=== PATIENT | female | born 1995 | race American Indian/Alaskan Native ===

== ENCOUNTER 2017-10-01 02:49 | Inpatient (IN) | payer MEDICAID ==
[2017-10-01] MEDS ORDERED: Nalbuphine 20 MG/ML 1 ML Syringe IVPUSH PRN (06:12)
[2017-10-01] MEDS ORDERED: Sodium Chloride 0.9% 10 ML Syringe FLUSH PRN (06:12)
[2017-10-01] MEDS ORDERED: Oxytocin/Lactated Ringers 10 UNIT/1,000 ML BAG IV SCH (06:15)
[2017-10-01] MEDS ORDERED: Lactated Ringers 1,000 ML IV SCH (06:15)
[2017-10-01] MEDS ORDERED: Diphtheria,Pertussis(Acell),Tetanus Vaccine 0.5 ML SDV IM ONE (06:42)
[2017-10-01] MEDS ORDERED: ePHEDrine 50 MG/ML SDV IVPUSH PRN (07:34)
[2017-10-01] MEDS ORDERED: fentaNYL 100 MCG/2 ML SDV EPIDUR PRN (07:34)
[2017-10-01] MEDS ORDERED: Ondansetron 4 MG/2 ML SDV IVPUSH PRN (07:34)
--- NOTE | 2017-10-01 07:36 | PCM.PREANE ---
Preanesthetic Assessment - Anesthesia/Transfusion/Family Hx Anesthesia History: Prior Anesthesia Reaction Family History of Anesthesia Reaction: No Transfusion History: No Prior Transfusion(s) Intubation History: Unknown - Physical Assessment NPO Status Date: 10/01/17 Pulse: 84 O2 Sat by Pulse Oximetry: 99 Respiratory Rate: 18 Blood Pressure: 104/72 Temperature: 36.6 C Vital Signs: Last Vital Signs Temp 36.6 C 10/01/17 03:39 Pulse 84 10/01/17 03:39 Resp 18 10/01/17 03:39 BP 104/72 10/01/17 03:39 Pulse Ox Height: 1.65 m Weight: 79.333 kg ASA Class: 2 Mental Status: Alert & Oriented x3 - Lab Values: Laboratory Last Values WBC 11.85 K/mm3 (3.98-10.04) H 10/01/17 04:40 RBC 3.48 M/mm3 (3.98-5.22) L 10/01/17 04:40 Hgb 8.5 gm/L (11.2-15.7) L 10/01/17 04:40 Hct 27.6 % (34.1-44.9) L 10/01/17 04:40 MCV 79.3 fl (79.4-94.8) L 10/01/17 04:40 MCH 24.4 pg (25.6-32.2) L 10/01/17 04:40 MCHC 30.8 g/dl (32.2-35.5) L 10/01/17 04:40 RDW Std Deviation 41.9 fL (36.4-46.3) 10/01/17 04:40 Plt Count 246 K/mm3 (182-369) 10/01/17 04:40 MPV 9.8 fl (9.4-12.3) 10/01/17 04:40 Neut % (Auto) 74.6 % (34.0-71.1) H 10/01/17 04:40 Lymph % (Auto) 17.3 % (19.3-51.7) L 10/01/17 04:40 [place] % (Auto) 6.5 % (4.7-12.5) 10/01/17 04:40 Eos % (Auto) 1.2 (0.7-5.8) 10/01/17 04:40 Baso % (Auto) 0.1 % (0.1-1.2) 10/01/17 04:40 Neut # (Auto) 8.85 K/mm3 (1.56-6.13) H 10/01/17 04:40 Lymph # (Auto) 2.05 K/mm3 (1.18-3.74) 10/01/17 04:40 [place] # (Auto) 0.77 K/mm3 (0.24-0.36) H 10/01/17 04:40 Eos # (Auto) 0.14 K/mm3 (0.04-0.36) 10/01/17 04:40 Baso # (Auto) 0.01 K/mm3 (0.01-0.08) 10/01/17 04:40 Urine Color Yellow (Yellow) 10/01/17 03:35 Urine Appearance Slt cloudy (Clear) H 10/01/17 03:35 Urine pH 7.0 (5.0-8.0) 10/01/17 03:35 Ur Specific [place] 1.020 (1.005-1.030) 10/01/17 03:35 Urine Protein Negative (Negative) 10/01/17 03:35 Urine Glucose (UA) Negative (Negative) 10/01/17 03:35 Urine Ketones Negative (Negative) 10/01/17 03:35 Urine Occult Blood Trace-lysed (Negative) H 10/01/17 03:35 Urine Nitrite Negative (Negative) 10/01/17 03:35 Urine Bilirubin Negative (Negative) 10/01/17 03:35 Urine Urobilinogen 1.0 (0.2-1.0) 10/01/17 03:35 Ur Leukocyte Esterase 1+ (Negative) H 10/01/17 03:35 Urine RBC 0-5 /hpf (0-5) 10/01/17 03:35 Urine WBC 0-5 /hpf (0-5) 10/01/17 03:35 Ur Epithelial Cells 0-5 /hpf (0-5) 10/01/17 03:35 Amorphous Sediment Many /hpf (NOT SEEN) H 10/01/17 03:35 Urine Bacteria Few /hpf (FEW) 10/01/17 03:35 Urine Mucus Not seen /hpf (FEW) 10/01/17 03:35 Urine Opiates Screen Negative (NEGATIVE) 10/01/17 03:35 Ur Buprenorphine Scrn Negative (NEGATIVE) 10/01/17 03:35 Ur Oxycodone Screen Negative (NEGATIVE) 10/01/17 03:35 Urine Methadone Screen Negative (NEGATIVE) 10/01/17 03:35 Ur Propoxyphene Screen Negative (NEGATIVE) 10/01/17 03:35 Ur Barbiturates Screen Negative (NEGATIVE) 10/01/17 03:35 Ur Tricyclics Screen Negative (NEGATIVE) 10/01/17 03:35 Ur Phencyclidine Scrn Negative (NEGATIVE) 10/01/17 03:35 Ur Amphetamine Screen Negative (NEGATIVE) 10/01/17 03:35 U Methamphetamines Scrn Negative (NEGATIVE) 10/01/17 03:35 U Benzodiazepines Scrn Negative (NEGATIVE) 10/01/17 03:35 U Cocaine Metab Screen Negative (NEGATIVE) 10/01/17 03:35 U Marijuana (THC) Screen Negative (NEGATIVE) 10/01/17 03:35 HIV-1 Ab Rapid Screen Negative (NEGATIVE) 10/01/17 04:40 Blood Type A POSITIVE 10/01/17 04:40 Gel Antibody Screen Negative 10/01/17 04:40 Above labs reviewed and noted and within acceptable ranges to proceed with epidural. 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: - SUBSTANCE USE Smoking Status *Q: Never Smoker Tobacco Use Within Last Twelve Months: No Second Hand Smoke Exposure: No Recreational Drug Use History: No - CURRENT (IN HOUSE) MEDS Current Meds: Current Medications Lactated Ringer's (Ringers, Lactated) 1,000 mls @ 100 mls/hr IV ASDIRECTED [facility] Last Admin: 10/01/17 06:47 Dose: 100 mls/hr Oxytocin/Lactated Ringer's (Pitocin In Lr 10 Units/1,000 Ml) 10 unit in 1,000 mls @ 500 mls/hr IV .CONTINUOUS DARIA Nalbuphine HCl (Nubain) 10 mg IVPUSH Q2H PRN PRN Reason: pain Sodium Chloride (Saline Flush) 10 ml FLUSH ASDIRECTED PRN PRN Reason: Keep Vein Open Discontinued Medications Diphtheria/Tetanus/Acell Pertussis (Adacel) 0.5 ml IM .ONCE ONE Stop: 10/01/17 06:43
[2017-10-01] MEDS ORDERED: Bupivacaine/fentaNYL/NS 100 ML Bag EPIDUR SCH (07:45)
[2017-10-01] MEDS ORDERED: Phenylephrine 1 MG in Sodium Chloride 0.9% 10 ML IV SCH (07:45)
--- NOTE | 2017-10-01 07:50 | PCM.LDHP ---
L&D History of Present Illness - General Date of Service: 10/01/17 Admit Problem/Dx: Patient Status Order with Admit Dx/Problem 10/01/17 03:39 Patient Status [ADT] Routine 10/01/17 06:45 Patient Status [ADT] Routine Admission Diagnosis/Problem Admission Diagnosis/Problem Source of Information: Patient History Limitations: Reports: No Limitations - History of Present Illness Introduction:: 22-year-old no care presented to labor and delivery complaining of contractions. new OB labs obtained. According to patient GBS negative with last . GBS collected not available at present time. Patient was having irregular contractions but then labor became stronger and patient went from 1 cm to 3 end now 7 cm within an hour and a half time. Amniotomy performed at approximately 07 40 meconium-stained amnionic fluid. Estimated gestational age 38 weeks pelvic usg obtained today. AISHWARYA 10/01/2017 by LMP. 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: Social & Family History - Family History Family Medical History: Noncontributory - Tobacco Use Smoking Status *Q: Never Smoker Second Hand Smoke Exposure: No - Caffeine Use Caffeine Use: Reports: Soda - Recreational Drug Use Recreational Drug Use: No H&P Review of Systems - Review of Systems: Review Of Systems: See Below General: Reports: No Symptoms HEENT: Reports: No Symptoms Pulmonary: Reports: No Symptoms Cardiovascular: Reports: No Symptoms Gastrointestinal: Reports: No Symptoms Genitourinary: Reports: No Symptoms Musculoskeletal: Reports: No Symptoms Skin: Reports: No Symptoms Psychiatric: Reports: No Symptoms Neurological: Reports: No Symptoms Hematologic/Lymphatic: Reports: No Symptoms Immunologic: Reports: No Symptoms L&D Exam - Exam Exam: See Below - Vital Signs Vital Signs: Last Vital Signs Temp 97.9 F 10/01/17 07:36 Pulse 84 10/01/17 07:36 Resp 18 10/01/17 07:36 BP 104/72 10/01/17 07:36 Pulse Ox 99 10/01/17 07:36 Weight: 174 lb 14.4 oz - OB Specific Fundal Height In cm: 38 Contraction Duration (sec): 60 Contraction Frequency (min): 3 Contraction Intensity: Moderate Movement: Active Heart Tones: Present Heart Tones per Min: 135 Heart Rate (FHR) Variability: Moderate (6-25 bmp) Presentation: Vertex - Ha Score Ha Score Cervix Position: Anterior Ha Score Consistency: Soft Ha Score Effacement: >80% Ha Score Dilation: > 5 cm Ha Score Infant's Station: -1 ,0 Ha Score Total: 12 - Exam General: Alert, Oriented HEENT: Conjunctiva Clear, Mucosa Moist & [place], PERRLA Neck: Supple, Trachea Midline Lungs: Clear to Auscultation, Normal Respiratory Effort Cardiovascular: Regular Rate, Regular Rhythm GI/Abdominal Exam: Normal Bowel Sounds, Soft, Non-Tender, No Organomegaly, No Distention, No Abnormal Bruit, No Mass, Pelvis Stable Genitourinary: Normal external exam, Normal bimanual exam, Normal speculum exam Extremities: Normal Inspection, Normal Range of Motion, Non-Tender, No Pedal Edema, Normal Capillary Refill Skin: Warm, Dry, Intact Psychiatric: Alert, Normal Affect, Normal Mood - Patient Data Lab Results Last 24 hrs: Laboratory Results - last 24 hr 10/01/17 10/01/17 10/01/17 Range/Units 03:35 03:35 04:40 WBC 11.85 H (3.98-10.04) K/mm3 RBC 3.48 L (3.98-5.22) M/mm3 Hgb 8.5 L (11.2-15.7) gm/L Hct 27.6 L (34.1-44.9) % MCV 79.3 L (79.4-94.8) fl MCH 24.4 L (25.6-32.2) pg MCHC 30.8 L (32.2-35.5) g/dl RDW Std Deviation 41.9 (36.4-46.3) fL Plt Count 246 (182-369) K/mm3 MPV 9.8 (9.4-12.3) fl Neut % (Auto) 74.6 H (34.0-71.1) % Lymph % (Auto) 17.3 L (19.3-51.7) % [place] % (Auto) 6.5 (4.7-12.5) % Eos % (Auto) 1.2 (0.7-5.8) Baso % (Auto) 0.1 (0.1-1.2) % Neut # (Auto) 8.85 H (1.56-6.13) K/mm3 Lymph # (Auto) 2.05 (1.18-3.74) K/mm3 [place] # (Auto) 0.77 H (0.24-0.36) K/mm3 Eos # (Auto) 0.14 (0.04-0.36) K/mm3 Baso # (Auto) 0.01 (0.01-0.08) K/mm3 Urine Color Yellow (Yellow) Urine Appearance Slt cloudy H (Clear) Urine pH 7.0 (5.0-8.0) Ur Specific [place] 1.020 (1.005-1.030) Urine Protein Negative (Negative) Urine Glucose (UA) Negative (Negative) Urine Ketones Negative (Negative) Urine Occult Blood Trace-lysed H (Negative) Urine Nitrite Negative (Negative) Urine Bilirubin Negative (Negative) Urine Urobilinogen 1.0 (0.2-1.0) Ur Leukocyte Esterase 1+ H (Negative) Urine RBC 0-5 (0-5) /hpf Urine WBC 0-5 (0-5) /hpf Ur Epithelial Cells 0-5 (0-5) /hpf Amorphous Sediment Many H (NOT SEEN) /hpf Urine Bacteria Few (FEW) /hpf Urine Mucus Not seen (FEW) /hpf Urine Opiates Screen Negative (NEGATIVE) Ur Buprenorphine Scrn Negative (NEGATIVE) Ur Oxycodone Screen Negative (NEGATIVE) Urine Methadone Screen Negative (NEGATIVE) Ur Propoxyphene Screen Negative (NEGATIVE) Ur Barbiturates Screen Negative (NEGATIVE) Ur Tricyclics Screen Negative (NEGATIVE) Ur Phencyclidine Scrn Negative (NEGATIVE) Ur Amphetamine Screen Negative (NEGATIVE) U Methamphetamines Scrn Negative (NEGATIVE) U Benzodiazepines Scrn Negative (NEGATIVE) U Cocaine Metab Screen Negative (NEGATIVE) U Marijuana (THC) Screen Negative (NEGATIVE) HIV-1 Ab Rapid Screen (NEGATIVE) Blood Type Gel Antibody Screen 10/01/17 10/01/17 Range/Units 04:40 04:40 WBC (3.98-10.04) K/mm3 RBC (3.98-5.22) M/mm3 Hgb (11.2-15.7) gm/L Hct (34.1-44.9) % MCV (79.4-94.8) fl MCH (25.6-32.2) pg MCHC (32.2-35.5) g/dl RDW Std Deviation (36.4-46.3) fL Plt Count (182-369) K/mm3 MPV (9.4-12.3) fl Neut % (Auto) (34.0-71.1) % Lymph % (Auto) (19.3-51.7) % [place] % (Auto) (4.7-12.5) % Eos % (Auto) (0.7-5.8) Baso % (Auto) (0.1-1.2) % Neut # (Auto) (1.56-6.13) K/mm3 Lymph # (Auto) (1.18-3.74) K/mm3 [place] # (Auto) (0.24-0.36) K/mm3 Eos # (Auto) (0.04-0.36) K/mm3 Baso # (Auto) (0.01-0.08) K/mm3 Urine Color (Yellow) Urine Appearance (Clear) Urine pH (5.0-8.0) Ur Specific [place] (1.005-1.030) Urine Protein (Negative) Urine Glucose (UA) (Negative) Urine Ketones (Negative) Urine Occult Blood (Negative) Urine Nitrite (Negative) Urine Bilirubin (Negative) Urine Urobilinogen (0.2-1.0) Ur Leukocyte Esterase (Negative) Urine RBC (0-5) /hpf Urine WBC (0-5) /hpf Ur Epithelial Cells (0-5) /hpf Amorphous Sediment (NOT SEEN) /hpf Urine Bacteria (FEW) /hpf Urine Mucus (FEW) /hpf Urine Opiates Screen (NEGATIVE) Ur Buprenorphine Scrn (NEGATIVE) Ur Oxycodone Screen (NEGATIVE) Urine Methadone Screen (NEGATIVE) Ur Propoxyphene Screen (NEGATIVE) Ur Barbiturates Screen (NEGATIVE) Ur Tricyclics Screen (NEGATIVE) Ur Phencyclidine Scrn (NEGATIVE) Ur Amphetamine Screen (NEGATIVE) U Methamphetamines Scrn (NEGATIVE) U Benzodiazepines Scrn (NEGATIVE) U Cocaine Metab Screen (NEGATIVE) U Marijuana (THC) Screen (NEGATIVE) HIV-1 Ab Rapid Screen Negative (NEGATIVE) Blood Type A POSITIVE Gel Antibody Screen Negative Result Diagrams: 10/01/17 04:40 - Problem List (1) No care in current in third trimester SNOMED Code(s): 130343640, 289437386 ICD Code: O09.33 - SUPRVSN OF PREG W INSUFFICIENT ANTENAT CARE, THIRD TRIMESTER Status: Acute Current Visit: Yes (2) Meconium in amniotic fluid affecting management of mother SNOMED Code(s): 09054391 ICD Code: O36.8990 - MATERNAL CARE FOR OTH PROBLEMS, UNSP TRIMESTER, UNSP Status: Acute Current Visit: Yes Qualifiers: Fetus number: single or unspecified fetus Trimester: third trimester Qualified Code(s): O36.8930 - Maternal care for other specified problems, third trimester, not applicable or unspecified (3) 40 weeks gestation of SNOMED Code(s): 35670616 ICD Code: Z3A.40 - 40 WEEKS GESTATION OF Status: Acute Current Visit: Yes Problem List Initiated/Reviewed/Updated: No Orders Last 24hrs: Active Orders 24 hr Category Date Time Status Patient Status [ADT] Routine ADT 10/01/17 03:39 Active Patient Status [ADT] Routine ADT 10/01/17 06:45 Active Activity as Tolerated [RC] PFP Care 10/01/17 06:16 Active Communication Order [RC] ASDIRECTED Care 10/01/17 06:16 Active Notify Provider [RC] ASDIRECTED Care 10/01/17 07:34 Active Notify Provider [RC] PFP Care 10/01/17 06:16 Active Notify Provider [RC] PRN Care 10/01/17 06:16 Active Oxygen Therapy [RC] ASDIRECTED Care 10/01/17 07:33 Active Peripheral IV Care [RC] . DIRECTED Care 10/01/17 06:16 Active Pulse Oximetry [RC] ASDIRECTED Care 10/01/17 07:34 Active Vaccines to be Administered [RC] PER UNIT ROUTINE Care 10/01/17 06:42 Active Vital Signs [RC] PER UNIT ROUTINE Care 10/01/17 03:39 Active Regular Diet [DIET] Diet 10/01/17 Breakfast Active OB Ltd 1 or More Fetus [US] Urgent Exams 10/01/17 04:20 Taken DRUG SCREEN, URINE [URCHEM] Stat Lab 10/01/17 03:35 Ordered GROUP B STREP BY PCR [MOLEC] Stat Lab 10/01/17 04:30 Received HEPATITIS B SURFACE AG [CHEM] Stat Lab 10/01/17 04:40 Received PATIENT RETYPE [BBK] Urgent Lab 10/01/17 04:40 Results RAPID PLASMA REAGIN,RPR [CHEM] Stat Lab 10/01/17 04:40 Received RUBELLA ANTIBODY IGG [CHEM] Stat Lab 10/01/17 04:40 Received TYPE AND SCREEN [BBK] Urgent Lab 10/01/17 04:40 Results UA W/MICROSCOPIC [URIN] Stat Lab 10/01/17 03:35 Ordered Bupivacaine/fentaNYL/NS [fentaNYL/Bupivacaine/NS 2 MCG- Med 10/01/17 07:45 Active 0.125% 100 ML] 100 ml EPIDUR ASDIRECTED Lactated Ringers [Ringers, Lactated] 1,000 ml Med 10/01/17 06:15 Active IV ASDIRECTED Nalbuphine [Nubain] Med 10/01/17 06:12 Active 10 mg IVPUSH Q2H PRN Ondansetron [Zofran] Med 10/01/17 07:34 Active 4 mg IVPUSH ONETIME PRN Oxytocin/Lactated Ringers [Pitocin in LR 10 Units/1,000 Med 10/01/17 06:15 Active ML] 10 unit in 1,000 ml IV .CONTINUOUS Phenylephrine [Rogelio-Synephrine] 1 mg Med 10/01/17 07:45 Active Sodium Chloride 0.9% [Normal Saline] 10 ml IV TITRATE Sodium Chloride 0.9% [Saline Flush] Med 10/01/17 06:12 Active 10 ml FLUSH ASDIRECTED PRN ePHEDrine [ePHEDrine Sulfate] Med 10/01/17 07:34 Active 5 mg IVPUSH ASDIRECTED PRN fentaNYL [Sublimaze] Med 10/01/17 07:34 Active 100 mcg EPIDUR Q3H PRN Electronic Heart Tones Ext w TOCO [WOMSER] Oth 10/01/17 06:16 Ordered Routine Electronic Heart Tones Internal [WOMSER] Per Unit Oth 10/01/17 06:16 Ordered Routine OB Panel [OM.PC] Stat Oth 10/01/17 04:20 Ordered Peripheral IV Insertion Adult [OM.PC] Routine Oth 10/01/17 06:16 Ordered Resuscitation Status Routine Resus Stat 10/01/17 03:38 Ordered Medication Orders Ephedrine Sulfate (Ephedrine Sulfate) 5 mg IVPUSH ASDIRECTED PRN PRN Reason: Hypotension Fentanyl (Sublimaze) 100 mcg EPIDUR Q3H PRN PRN Reason: Pain Fentanyl/Bupivacaine HCl (Fentanyl/Bupivacaine/Ns 2 Mcg-0.125% 100 Ml) 100 ml EPIDUR ASDIRECTED DARIA Lactated Ringer's (Ringers, Lactated) 1,000 mls @ 100 mls/hr IV ASDIRECTED DARIA Last Admin: 10/01/17 06:47 Dose: 100 mls/hr Oxytocin/Lactated Ringer's (Pitocin In Lr 10 Units/1,000 Ml) 10 unit in 1,000 mls @ 500 mls/hr IV .CONTINUOUS DARIA Phenylephrine HCl 1 mg/ Sodium (Chloride) 10.1 mls @ 1 mls/sec IV TITRATE DARIA; Protocol Nalbuphine HCl (Nubain) 10 mg IVPUSH Q2H PRN PRN Reason: pain Ondansetron HCl (Zofran) 4 mg IVPUSH ONETIME PRN PRN Reason: Nausea/Vomiting Sodium Chloride (Saline Flush) 10 ml FLUSH ASDIRECTED PRN PRN Reason: Keep Vein Open
[2017-10-01] MEDS ORDERED: Misoprostol 200 MCG Tab ONE (08:06)
--- NOTE | 2017-10-01 08:15 | PCM.DEL ---
L & D Note - General Info Date of Service: 10/01/17 Mother's Due Date: 10/01/17 - Delivery Note Labor: Spontaneous, Augmented by ARM Delivery Outcome: Livebirth (Female liveborn 0800 hrs. on Sunday10/01/17 BUTCH weight pending Apgars 8/9 meconium-stained amnionic fluid Dr. Santa food packer present at delivery) Delivery Method: Spontaneous Vaginal Delivery-Single Delivery Mode: Spontaneous Presentation: Right Occiput Anterior (BUTCH) Nuchal Cord: None Anesthesia Type: None Episiotomy Type: None Laceration: None Placenta: Intact, Spontaneous (0803 hours on Sunday10/01/17 central cord insertion examined and no missing placental cotyledons) Cord: 3 Vessels Estimated Blood Loss: 500 (Cytotec 200 g 2) Resuscitation Needed: No : Suctioned, Bulb Syringe, Stimulated, Warmed, [place] Used, Warmer Used Provider: James Obando Score 1 min: 8 Score 5 min: 9 - General Info Date of Service: 10/01/17 Admission Dx/Problem (Free Text): Patient Status Order with Admit Dx/Problem 10/01/17 03:39 Patient Status [ADT] Routine 10/01/17 06:45 Patient Status [ADT] Routine Admission Diagnosis/Problem Admission Diagnosis/Problem Functional Status: Reports: Pain Controlled - Review of Systems General: Reports: No Symptoms HEENT: Reports: No Symptoms Pulmonary: Reports: No Symptoms Cardiovascular: Reports: No Symptoms Gastrointestinal: Reports: No Symptoms Genitourinary: Reports: No Symptoms Musculoskeletal: Reports: No Symptoms Skin: Reports: No Symptoms Neurological: Reports: No Symptoms Psychiatric: Reports: No Symptoms - Patient Data Vitals - Most Recent: Last Vital Signs Temp 97.9 F 10/01/17 07:36 Pulse 84 10/01/17 07:36 Resp 18 10/01/17 07:36 BP 104/72 10/01/17 07:36 Pulse Ox 99 10/01/17 07:36 Weight - Most Recent: 174 lb 14.4 oz Lab Results Last 24 Hours: Laboratory Results - last 24 hr 10/01/17 10/01/17 10/01/17 Range/Units 03:35 03:35 04:40 WBC 11.85 H (3.98-10.04) K/mm3 RBC 3.48 L (3.98-5.22) M/mm3 Hgb 8.5 L (11.2-15.7) gm/L Hct 27.6 L (34.1-44.9) % MCV 79.3 L (79.4-94.8) fl MCH 24.4 L (25.6-32.2) pg MCHC 30.8 L (32.2-35.5) g/dl RDW Std Deviation 41.9 (36.4-46.3) fL Plt Count 246 (182-369) K/mm3 MPV 9.8 (9.4-12.3) fl Neut % (Auto) 74.6 H (34.0-71.1) % Lymph % (Auto) 17.3 L (19.3-51.7) % [place] % (Auto) 6.5 (4.7-12.5) % Eos % (Auto) 1.2 (0.7-5.8) Baso % (Auto) 0.1 (0.1-1.2) % Neut # (Auto) 8.85 H (1.56-6.13) K/mm3 Lymph # (Auto) 2.05 (1.18-3.74) K/mm3 M[place]at # (Auto) 0.77 H (0.24-0.36) K/mm3 Eos # (Auto) 0.14 (0.04-0.36) K/mm3 Baso # (Auto) 0.01 (0.01-0.08) K/mm3 Urine Color Yellow (Yellow) Urine Appearance Slt cloudy H (Clear) Urine pH 7.0 (5.0-8.0) Ur Specific [place] 1.020 (1.005-1.030) Urine Protein Negative (Negative) Urine Glucose (UA) Negative (Negative) Urine Ketones Negative (Negative) Urine Occult Blood Trace-lysed H (Negative) Urine Nitrite Negative (Negative) Urine Bilirubin Negative (Negative) Urine Urobilinogen 1.0 (0.2-1.0) Ur Leukocyte Esterase 1+ H (Negative) Urine RBC 0-5 (0-5) /hpf Urine WBC 0-5 (0-5) /hpf Ur Epithelial Cells 0-5 (0-5) /hpf Amorphous Sediment Many H (NOT SEEN) /hpf Urine Bacteria Few (FEW) /hpf Urine Mucus Not seen (FEW) /hpf Urine Opiates Screen Negative (NEGATIVE) Ur Buprenorphine Scrn Negative (NEGATIVE) Ur Oxycodone Screen Negative (NEGATIVE) Urine Methadone Screen Negative (NEGATIVE) Ur Propoxyphene Screen Negative (NEGATIVE) Ur Barbiturates Screen Negative (NEGATIVE) Ur Tricyclics Screen Negative (NEGATIVE) Ur Phencyclidine Scrn Negative (NEGATIVE) Ur Amphetamine Screen Negative (NEGATIVE) U Methamphetamines Scrn Negative (NEGATIVE) U Benzodiazepines Scrn Negative (NEGATIVE) U Cocaine Metab Screen Negative (NEGATIVE) U Marijuana (THC) Screen Negative (NEGATIVE) HIV-1 Ab Rapid Screen (NEGATIVE) Blood Type Gel Antibody Screen 10/01/17 10/01/17 Range/Units 04:40 04:40 WBC (3.98-10.04) K/mm3 RBC (3.98-5.22) M/mm3 Hgb (11.2-15.7) gm/L Hct (34.1-44.9) % MCV (79.4-94.8) fl MCH (25.6-32.2) pg MCHC (32.2-35.5) g/dl RDW Std Deviation (36.4-46.3) fL Plt Count (182-369) K/mm3 MPV (9.4-12.3) fl Neut % (Auto) (34.0-71.1) % Lymph % (Auto) (19.3-51.7) % [place] % (Auto) (4.7-12.5) % Eos % (Auto) (0.7-5.8) Baso % (Auto) (0.1-1.2) % Neut # (Auto) (1.56-6.13) K/mm3 Lymph # (Auto) (1.18-3.74) K/mm3 [place] # (Auto) (0.24-0.36) K/mm3 Eos # (Auto) (0.04-0.36) K/mm3 Baso # (Auto) (0.01-0.08) K/mm3 Urine Color (Yellow) Urine Appearance (Clear) Urine pH (5.0-8.0) Ur Specific [place] (1.005-1.030) Urine Protein (Negative) Urine Glucose (UA) (Negative) Urine Ketones (Negative) Urine Occult Blood (Negative) Urine Nitrite (Negative) Urine Bilirubin (Negative) Urine Urobilinogen (0.2-1.0) Ur Leukocyte Esterase (Negative) Urine RBC (0-5) /hpf Urine WBC (0-5) /hpf Ur Epithelial Cells (0-5) /hpf Amorphous Sediment (NOT SEEN) /hpf Urine Bacteria (FEW) /hpf Urine Mucus (FEW) /hpf Urine Opiates Screen (NEGATIVE) Ur Buprenorphine Scrn (NEGATIVE) Ur Oxycodone Screen (NEGATIVE) Urine Methadone Screen (NEGATIVE) Ur Propoxyphene Screen (NEGATIVE) Ur Barbiturates Screen (NEGATIVE) Ur Tricyclics Screen (NEGATIVE) Ur Phencyclidine Scrn (NEGATIVE) Ur Amphetamine Screen (NEGATIVE) U Methamphetamines Scrn (NEGATIVE) U Benzodiazepines Scrn (NEGATIVE) U Cocaine Metab Screen (NEGATIVE) U Marijuana (THC) Screen (NEGATIVE) HIV-1 Ab Rapid Screen Negative (NEGATIVE) Blood Type A POSITIVE Gel Antibody Screen Negative Med Orders - Current: Current Medications Ephedrine Sulfate (Ephedrine Sulfate) 5 mg IVPUSH ASDIRECTED PRN PRN Reason: Hypotension Fentanyl (Sublimaze) 100 mcg EPIDUR Q3H PRN PRN Reason: Pain Fentanyl/Bupivacaine HCl (Fentanyl/Bupivacaine/Ns 2 Mcg-0.125% 100 Ml) 100 ml EPIDUR ASDIRECTED DARIA Lactated Ringer's (Ringers, Lactated) 1,000 mls @ 100 mls/hr IV ASDIRECTED DARIA Last Admin: 10/01/17 06:47 Dose: 100 mls/hr Oxytocin/Lactated Ringer's (Pitocin In Lr 10 Units/1,000 Ml) 10 unit in 1,000 mls @ 500 mls/hr IV .CONTINUOUS DARIA Phenylephrine HCl 1 mg/ Sodium (Chloride) 10.1 mls @ 1 mls/sec IV TITRATE DARIA; Protocol Nalbuphine HCl (Nubain) 10 mg IVPUSH Q2H PRN PRN Reason: pain Ondansetron HCl (Zofran) 4 mg IVPUSH ONETIME PRN PRN Reason: Nausea/Vomiting Sodium Chloride (Saline Flush) 10 ml FLUSH ASDIRECTED PRN PRN Reason: Keep Vein Open Discontinued Medications Diphtheria/Tetanus/Acell Pertussis (Adacel) 0.5 ml IM .ONCE ONE Stop: 10/01/17 06:43 Misoprostol (Cytotec) Confirm Administered Dose 400 mcg .ROUTE .STK-MED ONE Stop: 10/01/17 08:07 - Problem List & Annotations (1) No care in current in third trimester SNOMED Code(s): 157916442, 144919850 Code(s): O09.33 - SUPRVSN OF PREG W INSUFFICIENT ANTENAT CARE, THIRD TRIMESTER Status: Acute Current Visit: Yes (2) Meconium in amniotic fluid affecting management of mother SNOMED Code(s): 89467437 Code(s): O36.8990 - MATERNAL CARE FOR OTH PROBLEMS, UNSP TRIMESTER, UNSP Status: Acute Current Visit: Yes Qualifiers: Fetus number: single or unspecified fetus Trimester: third trimester Qualified Code(s): O36.8930 - Maternal care for other specified problems, third trimester, not applicable or unspecified (3) 40 weeks gestation of SNOMED Code(s): 27194533 Code(s): Z3A.40 - 40 WEEKS GESTATION OF Status: Acute Current Visit: Yes - Problem List Review Problem List Initiated/Reviewed/Updated: No - My Orders Last 24 Hours: My Active Orders 10/01/17 03:35 DRUG SCREEN, URINE [URCHEM] Stat UA W/MICROSCOPIC [URIN] Stat 10/01/17 03:38 Resuscitation Status Routine 10/01/17 03:39 Patient Status [ADT] Routine Vital Signs [RC] PER UNIT ROUTINE 10/01/17 04:20 OB Ltd 1 or More Fetus [US] Urgent OB Panel [OM.PC] Stat 10/01/17 04:30 GROUP B STREP BY PCR [MOLEC] Stat 10/01/17 04:40 HEPATITIS B SURFACE AG [CHEM] Stat PATIENT RETYPE [BBK] Urgent RAPID PLASMA REAGIN,RPR [CHEM] Stat RUBELLA ANTIBODY IGG [CHEM] Stat TYPE AND SCREEN [BBK] Urgent 10/01/17 06:12 Nalbuphine [Nubain] 10 mg IVPUSH Q2H PRN Sodium Chloride 0.9% [Saline Flush] 10 ml FLUSH ASDIRECTED PRN 10/01/17 06:15 Lactated Ringers [Ringers, Lactated] 1,000 ml IV ASDIRECTED Oxytocin/Lactated Ringers [Pitocin in LR 10 Units/1,000 ML] 10 unit in 1,000 ml IV .CONTINUOUS 10/01/17 06:16 Activity as Tolerated [RC] PFP Communication Order [RC] ASDIRECTED Notify Provider [RC] PFP Notify Provider [RC] PRN Peripheral IV Care [RC] . DIRECTED Electronic Heart Tones Ext w TOCO [WOMSER] Routine Electronic Heart Tones Internal [WOMSER] Per Unit Routine Peripheral IV Insertion Adult [OM.PC] Routine 10/01/17 06:42 Vaccines to be Administered [RC] PER UNIT ROUTINE 10/01/17 06:45 Patient Status [ADT] Routine 10/01/17 Breakfast Regular Diet [DIET]
[2017-10-01] MEDS ORDERED: Docusate Sodium 100 MG Cap PO PRN (09:45)
[2017-10-01] MEDS ORDERED: Lanolin 100% Cream 7 GM Tube TOP PRN (09:45)
[2017-10-01] MEDS ORDERED: Benzocaine/Menthol 20%-0.5% Spray 56 GM Canister TOP PRN (09:45)
[2017-10-01] MEDS ORDERED: Acetaminophen 325 MG Tab PO PRN (09:45)
[2017-10-01] MEDS ORDERED: Witch Hazel Medicated Pads 100/Jar TOP PRN (09:45)
[2017-10-01] MEDS ORDERED: Misoprostol 200 MCG Tab PO ONE (09:45)
[2017-10-01] MEDS: Ibuprofen 600 MG Tab PO PRN (16:22)
--- NOTE | 2017-10-02 07:51 | PCM.SN ---
- Free Text/Narrative Note: 10/02/17 0750 hrs. Chest clear no abnormal heart sounds uterus involuting normally no leg cramping no heavy vaginal bleeding maybe home tomorrow.
[2017-10-02] MEDS: Ibuprofen 600 MG Tab PO PRN ×2 (14:34→22:34)
--- NOTE | 2017-10-03 08:44 | PCM.DCSUM1 ---
Discharge Summary - Hospital Course Free Text/Narrative:: [facility], [place], operated by [facility] LIVE L/D Delivery Note Patient Name: YISEL MARX Date of : 89 Patient Status: Inpatient Attending Provider: James Obando Date: 10/01/17 08:12 Initialization Date: 10/01/17 08:12 L & D Note - General Info Date of Service: 10/01/17 Mother's Due Date: 10/01/17 - Delivery Note Labor: Spontaneous, Augmented by ARM Delivery Outcome: Livebirth (Female liveborn 0800 hrs. on Sunday10/01/17 BUTCH weight pending Apgars 09/13 meconium-stained amnionic fluid Dr. Santa cloth examiner present at delivery) Delivery Method: Spontaneous Vaginal Delivery-Single Infant Delivery Mode: Spontaneous Presentation: Right Occiput Anterior (BUTCH) Nuchal Cord: None Anesthesia Type: None Episiotomy Type: None Laceration: None Placenta: Intact, Spontaneous (0803 hours on Sunday10/01/17 central cord insertion examined and no missing placental cotyledons) Cord: 3 Vessels Estimated Blood Loss: 500 (Cytotec 200 g 2) Resuscitation Needed: No [place]: Suctioned, Bulb Syringe, Stimulated, Warmed, Fouke Used, Warmer Used Provider: James Obando Score 1 min: 8 Score 5 min: 9 - General Info Date of Service: 10/01/17 Admission Dx/Problem (Free Text): Patient Status Order with Admit Dx/Problem 10/01/17 03:39 Patient Status [ADT] Routine 10/01/17 06:45 Patient Status [ADT] Routine Admission Diagnosis/Problem Admission Diagnosis/Problem Functional Status: Reports: Pain Controlled - Review of Systems General: Reports: No Symptoms HEENT: Reports: No Symptoms Pulmonary: Reports: No Symptoms Cardiovascular: Reports: No Symptoms Gastrointestinal: Reports: No Symptoms Genitourinary: Reports: No Symptoms Musculoskeletal: Reports: No Symptoms Skin: Reports: No Symptoms Neurological: Reports: No Symptoms Psychiatric: Reports: No Symptoms - Patient Data Vitals - Most Recent: Last Vital Signs Temp 97.9 F 10/01/17 07:36 Pulse 84 10/01/17 07:36 Resp 18 10/01/17 07:36 BP 104/72 10/01/17 07:36 Pulse Ox 99 10/01/17 07:36 Weight - Most Recent: 174 lb 14.4 oz Lab Results Last 24 Hours: Laboratory Results - last 24 hr 10/01/17 10/01/17 10/01/17 Range/Units 03:35 03:35 04:40 WBC 11.85 H (3.98-10.04) K/mm3 RBC 3.48 L (3.98-5.22) M/mm3 Hgb 8.5 L (11.2-15.7) gm/L Hct 27.6 L (34.1-44.9) % MCV 79.3 L (79.4-94.8) fl MCH 24.4 L (25.6-32.2) pg MCHC 30.8 L (32.2-35.5) g/dl RDW Std Deviation 41.9 (36.4-46.3) fL Plt Count 246 (182-369) K/mm3 MPV 9.8 (9.4-12.3) fl Neut % (Auto) 74.6 H (34.0-71.1) % Lymph % (Auto) 17.3 L (19.3-51.7) % Payne % (Auto) 6.5 (4.7-12.5) % Eos % (Auto) 1.2 (0.7-5.8) Baso % (Auto) 0.1 (0.1-1.2) % Neut # (Auto) 8.85 H (1.56-6.13) K/mm3 Lymph # (Auto) 2.05 (1.18-3.74) K/mm3 Payne # (Auto) 0.77 H (0.24-0.36) K/mm3 Eos # (Auto) 0.14 (0.04-0.36) K/mm3 Baso # (Auto) 0.01 (0.01-0.08) K/mm3 Urine Color Yellow (Yellow) Urine Appearance Slt cloudy H (Clear) Urine pH 7.0 (5.0-8.0) Ur Specific [place] 1.020 (1.005-1.030) Urine Protein Negative (Negative) Urine Glucose (UA) Negative (Negative) Urine Ketones Negative (Negative) Urine Occult Blood Trace-lysed H (Negative) Urine Nitrite Negative (Negative) Urine Bilirubin Negative (Negative) Urine Urobilinogen 1.0 (0.2-1.0) Ur Leukocyte Esterase 1+ H (Negative) Urine RBC 0-5 (0-5) /hpf Urine WBC 0-5 (0-5) /hpf Ur Epithelial Cells 0-5 (0-5) /hpf Amorphous Sediment Many H (NOT SEEN) /hpf Urine Bacteria Few (FEW) /hpf Urine Mucus Not seen (FEW) /hpf Urine Opiates Screen Negative (NEGATIVE) Ur Buprenorphine Scrn Negative (NEGATIVE) Ur Oxycodone Screen Negative (NEGATIVE) Urine Methadone Screen Negative (NEGATIVE) Ur Propoxyphene Screen Negative (NEGATIVE) Ur Barbiturates Screen Negative (NEGATIVE) Ur Tricyclics Screen Negative (NEGATIVE) Ur Phencyclidine Scrn Negative (NEGATIVE) Ur Amphetamine Screen Negative (NEGATIVE) U Methamphetamines Scrn Negative (NEGATIVE) U Benzodiazepines Scrn Negative (NEGATIVE) U Cocaine Metab Screen Negative (NEGATIVE) U Marijuana (THC) Screen Negative (NEGATIVE) HIV-1 Ab Rapid Screen (NEGATIVE) Blood Type Gel Antibody Screen 10/01/17 10/01/17 Range/Units 04:40 04:40 WBC (3.98-10.04) K/mm3 RBC (3.98-5.22) M/mm3 Hgb (11.2-15.7) gm/L Hct (34.1-44.9) % MCV (79.4-94.8) fl MCH (25.6-32.2) pg MCHC (32.2-35.5) g/dl RDW Std Deviation (36.4-46.3) fL Plt Count (182-369) K/mm3 MPV (9.4-12.3) fl Neut % (Auto) (34.0-71.1) % Lymph % (Auto) (19.3-51.7) % Payne % (Auto) (4.7-12.5) % Eos % (Auto) (0.7-5.8) Baso % (Auto) (0.1-1.2) % Neut # (Auto) (1.56-6.13) K/mm3 Lymph # (Auto) (1.18-3.74) K/mm3 Payne # (Auto) (0.24-0.36) K/mm3 Eos # (Auto) (0.04-0.36) K/mm3 Baso # (Auto) (0.01-0.08) K/mm3 Urine Color (Yellow) Urine Appearance (Clear) Urine pH (5.0-8.0) Ur Specific [place] (1.005-1.030) Urine Protein (Negative) Urine Glucose (UA) (Negative) Urine Ketones (Negative) Urine Occult Blood (Negative) Urine Nitrite (Negative) Urine Bilirubin (Negative) Urine Urobilinogen (0.2-1.0) Ur Leukocyte Esterase (Negative) Urine RBC (0-5) /hpf Urine WBC (0-5) /hpf Ur Epithelial Cells (0-5) /hpf Amorphous Sediment (NOT SEEN) /hpf Urine Bacteria (FEW) /hpf Urine Mucus (FEW) /hpf Urine Opiates Screen (NEGATIVE) Ur Buprenorphine Scrn (NEGATIVE) Ur Oxycodone Screen (NEGATIVE) Urine Methadone Screen (NEGATIVE) Ur Propoxyphene Screen (NEGATIVE) Ur Barbiturates Screen (NEGATIVE) Ur Tricyclics Screen (NEGATIVE) Ur Phencyclidine Scrn (NEGATIVE) Ur Amphetamine Screen (NEGATIVE) U Methamphetamines Scrn (NEGATIVE) U Benzodiazepines Scrn (NEGATIVE) U Cocaine Metab Screen (NEGATIVE) U Marijuana (THC) Screen (NEGATIVE) HIV-1 Ab Rapid Screen Negative (NEGATIVE) Blood Type A POSITIVE Gel Antibody Screen Negative Med Orders - Current: Current Medications Ephedrine Sulfate (Ephedrine Sulfate) 5 mg IVPUSH ASDIRECTED PRN PRN Reason: Hypotension Fentanyl (Sublimaze) 100 mcg EPIDUR Q3H PRN PRN Reason: Pain Fentanyl/Bupivacaine HCl (Fentanyl/Bupivacaine/Ns 2 Mcg-0.125% 100 Ml) 100 ml EPIDUR ASDIRECTED DARIA Lactated Ringer's (Ringers, Lactated) 1,000 mls @ 100 mls/hr IV ASDIRECTED DARIA Last Admin: 10/01/17 06:47 Dose: 100 mls/hr Oxytocin/Lactated Ringer's (Pitocin In Lr 10 Units/1,000 Ml) 10 unit in 1,000 mls @ 500 mls/hr IV .CONTINUOUS DARIA Phenylephrine HCl 1 mg/ Sodium (Chloride) 10.1 mls @ 1 mls/sec IV TITRATE DARIA; Protocol Nalbuphine HCl (Nubain) 10 mg IVPUSH Q2H PRN PRN Reason: pain Ondansetron HCl (Zofran) 4 mg IVPUSH ONETIME PRN PRN Reason: Nausea/Vomiting Sodium Chloride (Saline Flush) 10 ml FLUSH ASDIRECTED PRN PRN Reason: Keep Vein Open Discontinued Medications Diphtheria/Tetanus/Acell Pertussis (Adacel) 0.5 ml IM .ONCE ONE Stop: 10/01/17 06:43 Misoprostol (Cytotec) Confirm Administered Dose 400 mcg .ROUTE .STK-MED ONE Stop: 10/01/17 08:07 - Problem List & Annotations (1) No care in current in third trimester SNOMED Code(s): 571898224, 203121376 Code(s): O09.33 - SUPRVSN OF PREG W INSUFFICIENT ANTENAT CARE, THIRD TRIMESTER Status: Acute Current Visit: Yes (2) Meconium in amniotic fluid affecting management of mother SNOMED Code(s): 63980271 Code(s): O36.8990 - MATERNAL CARE FOR OTH PROBLEMS, UNSP TRIMESTER, UNSP Status: Acute Current Visit: Yes Qualifiers: Fetus number: single or unspecified fetus Trimester: third trimester Qualified Code(s): O36.8930 - Maternal care for other specified problems, third trimester, not applicable or unspecified (3) 40 weeks gestation of SNOMED Code(s): 80135787 Code(s): Z3A.40 - 40 WEEKS GESTATION OF Status: Acute Current Visit: Yes - Problem List Review Problem List Initiated/Reviewed/Updated: No - My Orders Last 24 Hours: My Active Orders 10/01/17 03:35 DRUG SCREEN, URINE [URCHEM] Stat UA W/MICROSCOPIC [URIN] Stat 10/01/17 03:38 Resuscitation Status Routine 10/01/17 03:39 Patient Status [ADT] Routine Vital Signs [RC] PER UNIT ROUTINE 10/01/17 04:20 OB Ltd 1 or More Fetus [US] Urgent OB Panel [OM.PC] Stat 10/01/17 04:30 GROUP B STREP BY PCR [MOLEC] Stat 10/01/17 04:40 HEPATITIS B SURFACE AG [CHEM] Stat PATIENT RETYPE [BBK] Urgent RAPID PLASMA REAGIN,RPR [CHEM] Stat RUBELLA ANTIBODY IGG [CHEM] Stat TYPE AND SCREEN [BBK] Urgent 10/01/17 06:12 Nalbuphine [Nubain] 10 mg IVPUSH Q2H PRN Sodium Chloride 0.9% [Saline Flush] 10 ml FLUSH ASDIRECTED PRN 10/01/17 06:15 Lactated Ringers [Ringers, Lactated] 1,000 ml IV ASDIRECTED Oxytocin/Lactated Ringers [Pitocin in LR 10 Units/1,000 ML] 10 unit in 1,000 ml IV .CONTINUOUS 10/01/17 06:16 Activity as Tolerated [RC] PFP Communication Order [RC] ASDIRECTED Notify Provider [RC] PFP Notify Provider [RC] PRN Peripheral IV Care [RC] . DIRECTED Electronic Heart Tones Ext w TOCO [WOMSER] Routine Electronic Heart Tones Internal [WOMSER] Per Unit Routine Peripheral IV Insertion Adult [OM.PC] Routine 10/01/17 06:42 Vaccines to be Administered [RC] PER UNIT ROUTINE 10/01/17 06:45 Patient Status [ADT] Routine 10/01/17 Breakfast Regular Diet [DIET] HPI Initial Comments: [facility], [place], operated by [facility] LIVE L/D Delivery Note Patient Name: YISEL MARX Date of : 89 Patient Status: Inpatient Attending Provider: James Obando Date: 10/01/17 08:12 Initialization Date: 10/01/17 08:12 L & D Note - General Info Date of Service: 10/01/17 Mother's Due Date: 10/01/17 - Delivery Note Labor: Spontaneous, Augmented by ARM Delivery Outcome: Livebirth (Female liveborn 0800 hrs. on Sunday10/01/17 BUTCH weight pending Apgars 8/9 meconium-stained amnionic fluid Dr. Santa cloth examiner present at delivery) Infant Delivery Method: Spontaneous Vaginal Delivery-Single Delivery Mode: Spontaneous Presentation: Right Occiput Anterior (BUTCH) Nuchal Cord: None Anesthesia Type: None Episiotomy Type: None Laceration: None Placenta: Intact, Spontaneous (0803 hours on Sunday10/01/17 central cord insertion examined and no missing placental cotyledons) Cord: 3 Vessels Estimated Blood Loss: 500 (Cytotec 200 g 2) Resuscitation Needed: No : Suctioned, Bulb Syringe, Stimulated, Warmed, Fouke Used, Warmer Used Provider: James Obando Score 1 min: 8 Score 5 min: 9 - General Info Date of Service: 10/01/17 Admission Dx/Problem (Free Text): Patient Status Order with Admit Dx/Problem 10/01/17 03:39 Patient Status [ADT] Routine 10/01/17 06:45 Patient Status [ADT] Routine Admission Diagnosis/Problem Admission Diagnosis/Problem Functional Status: Reports: Pain Controlled - Review of Systems General: Reports: No Symptoms HEENT: Reports: No Symptoms Pulmonary: Reports: No Symptoms Cardiovascular: Reports: No Symptoms Gastrointestinal: Reports: No Symptoms Genitourinary: Reports: No Symptoms Musculoskeletal: Reports: No Symptoms Skin: Reports: No Symptoms Neurological: Reports: No Symptoms Psychiatric: Reports: No Symptoms - Patient Data Vitals - Most Recent: Last Vital Signs Temp 97.9 F 10/01/17 07:36 Pulse 84 10/01/17 07:36 Resp 18 10/01/17 07:36 BP 104/72 10/01/17 07:36 Pulse Ox 99 10/01/17 07:36 Weight - Most Recent: 174 lb 14.4 oz Lab Results Last 24 Hours: Laboratory Results - last 24 hr 10/01/17 10/01/17 10/01/17 Range/Units 03:35 03:35 04:40 WBC 11.85 H (3.98-10.04) K/mm3 RBC 3.48 L (3.98-5.22) M/mm3 Hgb 8.5 L (11.2-15.7) gm/L Hct 27.6 L (34.1-44.9) % MCV 79.3 L (79.4-94.8) fl MCH 24.4 L (25.6-32.2) pg MCHC 30.8 L (32.2-35.5) g/dl RDW Std Deviation 41.9 (36.4-46.3) fL Plt Count 246 (182-369) K/mm3 MPV 9.8 (9.4-12.3) fl Neut % (Auto) 74.6 H (34.0-71.1) % Lymph % (Auto) 17.3 L (19.3-51.7) % Payne % (Auto) 6.5 (4.7-12.5) % Eos % (Auto) 1.2 (0.7-5.8) Baso % (Auto) 0.1 (0.1-1.2) % Neut # (Auto) 8.85 H (1.56-6.13) K/mm3 Lymph # (Auto) 2.05 (1.18-3.74) K/mm3 Payne # (Auto) 0.77 H (0.24-0.36) K/mm3 Eos # (Auto) 0.14 (0.04-0.36) K/mm3 Baso # (Auto) 0.01 (0.01-0.08) K/mm3 Urine Color Yellow (Yellow) Urine Appearance Slt cloudy H (Clear) Urine pH 7.0 (5.0-8.0) Ur Specific [place] 1.020 (1.005-1.030) Urine Protein Negative (Negative) Urine Glucose (UA) Negative (Negative) Urine Ketones Negative (Negative) Urine Occult Blood Trace-lysed H (Negative) Urine Nitrite Negative (Negative) Urine Bilirubin Negative (Negative) Urine Urobilinogen 1.0 (0.2-1.0) Ur Leukocyte Esterase 1+ H (Negative) Urine RBC 0-5 (0-5) /hpf Urine WBC 0-5 (0-5) /hpf Ur Epithelial Cells 0-5 (0-5) /hpf Amorphous Sediment Many H (NOT SEEN) /hpf Urine Bacteria Few (FEW) /hpf Urine Mucus Not seen (FEW) /hpf Urine Opiates Screen Negative (NEGATIVE) Ur Buprenorphine Scrn Negative (NEGATIVE) Ur Oxycodone Screen Negative (NEGATIVE) Urine Methadone Screen Negative (NEGATIVE) Ur Propoxyphene Screen Negative (NEGATIVE) Ur Barbiturates Screen Negative (NEGATIVE) Ur Tricyclics Screen Negative (NEGATIVE) Ur Phencyclidine Scrn Negative (NEGATIVE) Ur Amphetamine Screen Negative (NEGATIVE) U Methamphetamines Scrn Negative (NEGATIVE) U Benzodiazepines Scrn Negative (NEGATIVE) U Cocaine Metab Screen Negative (NEGATIVE) U Marijuana (THC) Screen Negative (NEGATIVE) HIV-1 Ab Rapid Screen (NEGATIVE) Blood Type Gel Antibody Screen 10/01/17 10/01/17 Range/Units 04:40 04:40 WBC (3.98-10.04) K/mm3 RBC (3.98-5.22) M/mm3 Hgb (11.2-15.7) gm/L Hct (34.1-44.9) % MCV (79.4-94.8) fl MCH (25.6-32.2) pg MCHC (32.2-35.5) g/dl RDW Std Deviation (36.4-46.3) fL Plt Count (182-369) K/mm3 MPV (9.4-12.3) fl Neut % (Auto) (34.0-71.1) % Lymph % (Auto) (19.3-51.7) % Payne % (Auto) (4.7-12.5) % Eos % (Auto) (0.7-5.8) Baso % (Auto) (0.1-1.2) % Neut # (Auto) (1.56-6.13) K/mm3 Lymph # (Auto) (1.18-3.74) K/mm3 Payne # (Auto) (0.24-0.36) K/mm3 Eos # (Auto) (0.04-0.36) K/mm3 Baso # (Auto) (0.01-0.08) K/mm3 Urine Color (Yellow) Urine Appearance (Clear) Urine pH (5.0-8.0) Ur Specific [place] (1.005-1.030) Urine Protein (Negative) Urine Glucose (UA) (Negative) Urine Ketones (Negative) Urine Occult Blood (Negative) Urine Nitrite (Negative) Urine Bilirubin (Negative) Urine Urobilinogen (0.2-1.0) Ur Leukocyte Esterase (Negative) Urine RBC (0-5) /hpf Urine WBC (0-5) /hpf Ur Epithelial Cells (0-5) /hpf Amorphous Sediment (NOT SEEN) /hpf Urine Bacteria (FEW) /hpf Urine Mucus (FEW) /hpf Urine Opiates Screen (NEGATIVE) Ur Buprenorphine Scrn (NEGATIVE) Ur Oxycodone Screen (NEGATIVE) Urine Methadone Screen (NEGATIVE) Ur Propoxyphene Screen (NEGATIVE) Ur Barbiturates Screen (NEGATIVE) Ur Tricyclics Screen (NEGATIVE) Ur Phencyclidine Scrn (NEGATIVE) Ur Amphetamine Screen (NEGATIVE) U Methamphetamines Scrn (NEGATIVE) U Benzodiazepines Scrn (NEGATIVE) U Cocaine Metab Screen (NEGATIVE) U Marijuana (THC) Screen (NEGATIVE) HIV-1 Ab Rapid Screen Negative (NEGATIVE) Blood Type A POSITIVE Gel Antibody Screen Negative Med Orders - Current: Current Medications Ephedrine Sulfate (Ephedrine Sulfate) 5 mg IVPUSH ASDIRECTED PRN PRN Reason: Hypotension Fentanyl (Sublimaze) 100 mcg EPIDUR Q3H PRN PRN Reason: Pain Fentanyl/Bupivacaine HCl (Fentanyl/Bupivacaine/Ns 2 Mcg-0.125% 100 Ml) 100 ml EPIDUR ASDIRECTED DARIA Lactated Ringer's (Ringers, Lactated) 1,000 mls @ 100 mls/hr IV ASDIRECTED DARIA Last Admin: 10/01/17 06:47 Dose: 100 mls/hr Oxytocin/Lactated Ringer's (Pitocin In Lr 10 Units/1,000 Ml) 10 unit in 1,000 mls @ 500 mls/hr IV .CONTINUOUS DARIA Phenylephrine HCl 1 mg/ Sodium (Chloride) 10.1 mls @ 1 mls/sec IV TITRATE DARIA; Protocol Nalbuphine HCl (Nubain) 10 mg IVPUSH Q2H PRN PRN Reason: pain Ondansetron HCl (Zofran) 4 mg IVPUSH ONETIME PRN PRN Reason: Nausea/Vomiting Sodium Chloride (Saline Flush) 10 ml FLUSH ASDIRECTED PRN PRN Reason: Keep Vein Open Discontinued Medications Diphtheria/Tetanus/Acell Pertussis (Adacel) 0.5 ml IM .ONCE ONE Stop: 10/01/17 06:43 Misoprostol (Cytotec) Confirm Administered Dose 400 mcg .ROUTE .STK-MED ONE Stop: 10/01/17 08:07 - Problem List & Annotations (1) No care in current in third trimester SNOMED Code(s): 956649009, 568427102 Code(s): O09.33 - SUPRVSN OF PREG W INSUFFICIENT ANTENAT CARE, THIRD TRIMESTER Status: Acute Current Visit: Yes (2) Meconium in amniotic fluid affecting management of mother SNOMED Code(s): 30543200 Code(s): O36.8990 - MATERNAL CARE FOR OTH PROBLEMS, UNSP TRIMESTER, UNSP Status: Acute Current Visit: Yes Qualifiers: Fetus number: single or unspecified fetus Trimester: third trimester Qualified Code(s): O36.8930 - Maternal care for other specified problems, third trimester, not applicable or unspecified (3) 40 weeks gestation of SNOMED Code(s): 45426991 Code(s): Z3A.40 - 40 WEEKS GESTATION OF Status: Acute Current Visit: Yes - Problem List Review Problem List Initiated/Reviewed/Updated: No - My Orders Last 24 Hours: My Active Orders 10/01/17 03:35 DRUG SCREEN, URINE [URCHEM] Stat UA W/MICROSCOPIC [URIN] Stat 10/01/17 03:38 Resuscitation Status Routine 10/01/17 03:39 Patient Status [ADT] Routine Vital Signs [RC] PER UNIT ROUTINE 10/01/17 04:20 OB Ltd 1 or More Fetus [US] Urgent OB Panel [OM.PC] Stat 10/01/17 04:30 GROUP B STREP BY PCR [MOLEC] Stat 10/01/17 04:40 HEPATITIS B SURFACE AG [CHEM] Stat PATIENT RETYPE [BBK] Urgent RAPID PLASMA REAGIN,RPR [CHEM] Stat RUBELLA ANTIBODY IGG [CHEM] Stat TYPE AND SCREEN [BBK] Urgent 10/01/17 06:12 Nalbuphine [Nubain] 10 mg IVPUSH Q2H PRN Sodium Chloride 0.9% [Saline Flush] 10 ml FLUSH ASDIRECTED PRN 10/01/17 06:15 Lactated Ringers [Ringers, Lactated] 1,000 ml IV ASDIRECTED Oxytocin/Lactated Ringers [Pitocin in LR 10 Units/1,000 ML] 10 unit in 1,000 ml IV .CONTINUOUS 10/01/17 06:16 Activity as Tolerated [RC] PFP Communication Order [RC] ASDIRECTED Notify Provider [RC] PFP Notify Provider [RC] PRN Peripheral IV Care [RC] . DIRECTED Electronic Heart Tones Ext w TOCO [WOMSER] Routine Electronic Heart Tones Internal [WOMSER] Per Unit Routine Peripheral IV Insertion Adult [OM.PC] Routine 10/01/17 06:42 Vaccines to be Administered [RC] PER UNIT ROUTINE 10/01/17 06:45 Patient Status [ADT] Routine 10/01/17 Breakfast Regular Diet [DIET] Brief History: [facility], [place], operated by [facility] LIVE . L/D Delivery Note. Patient Name: Kia MARX Record Number: [id number]. Date of : Patient Status: Inpatient. [id number]. Date: 10/01/17 08:12Initialization Date: 10/01/17 08:12. L & D Note. - General Info. Date of Service: 10/01/17. Mother's Due Date: 10/01/17. - Delivery Note. Labor: Spontaneous, Augmented by ARM. Delivery Outcome: Livebirth (Female liveborn 0800 hrs. on Sunday10/01/17 BUTCH weight pending Apgars 8/9 meconium-stained amnionic fluid Dr. Santa cloth examiner present at delivery). Delivery Method: Spontaneous Vaginal Delivery- Single. Infant Delivery Mode: Spontaneous. Presentation: Right Occiput Anterior (UBTCH). Nuchal Cord: None. Anesthesia Type: None. Episiotomy Type: None. Laceration: None. Placenta: Intact, Spontaneous (0803 hours on Sunday central cord insertion examined and no missing placental cotyledons). Cord: 3 Vessels. Estimated Blood Loss: 500 (Cytotec 200 g 2). Resuscitation Needed: No. [place]: Suctioned, Bulb Syringe, Stimulated, Warmed, Fouke Used , Warmer Used. Provider: James Obando. Score 1 min: 8. Score 5 min: 9. - General Info. Date of Service: 10/01/17. Admission Dx /Problem (Free Text): Patient Status Order with Admit Dx/Problem. 10/01/17 03: 39. Patient Status [ADT] Routine. 10/01/17 06:45. Patient Status [ADT] Routine. Admission Diagnosis/Problem. Admission Diagnosis/Problem . Functional Status: Reports: Pain Controlled. - Review of Systems. General: Reports: No Symptoms. HEENT: Reports: No Symptoms. Pulmonary: Reports : No Symptoms. Cardiovascular: Reports: No Symptoms. Gastrointestinal: Reports : No Symptoms. Genitourinary: Reports: No Symptoms. Musculoskeletal: Reports: No Symptoms. Skin: Reports: No Symptoms. Neurological: Reports: No Symptoms. Psychiatric: Reports: No Symptoms. - Patient Data. Vitals - Most Recent: Last Vital Signs. Temp 97.9 F 10/01/17 07:36. Pulse 84 10/01/17 07:36. Resp 18 08/27/18 07:36. BP 104/72 10/01/17 07:36. Pulse Ox 99 10/01/17 07: 36. Weight - Most Recent: 174 lb 14.4 oz. Lab Results Last 24 Hours: Laboratory Results - last 24 hr. 10/02/1807/Range/Units. 03:3503: 3504:40. WBC 11.85 H (3.98-10.04) K/mm3. RBC 3.48 L (3.98-5.22) M/mm3. Hgb 8.5 L (11.2-15.7) gm/L. Hct 27.6 L (34.1-44.9) %. MCV 79.3 L (79.4-94.8) fl. MCH 24.4 L (25.6-32.2) pg. MCHC 30.8 L (32.2-35.5) g/dl. RDW Std Deviation 41.9 (36.4-46.3) fL. Plt Count 246 (182-369) K/mm3. MPV 9.8 (9.4- 12.3) fl. Neut % (Auto) 74.6 H (34.0-71.1) %. Lymph % (Auto) 17.3 L (19.3- 51.7) %. Payne % (Auto) 6.5 (4.7-12.5) %. Eos % (Auto) 1.2 (0.7-5.8). Baso % (Auto) 0.1 (0.1-1.2) %. Neut # (Auto) 8.85 H (1.56-6.13) K/mm3. Lymph # ( Auto) 2.05 (1.18-3.74) K/mm3. Payne # (Auto) 0.77 H (0.24-0.36) K/mm3. Eos # (Auto) 0.14 (0.04-0.36) K/mm3. Baso # (Auto) 0.01 (0.01-0.08) K/mm3. Urine Color Yellow (Yellow). Urine Appearance Slt cloudy H (Clear). Urine pH 7.0 ( 5.0-8.0). Ur Specific [place] 1.020 (1.005-1.030). Urine Protein Negative ( Negative). Urine Glucose (UA) Negative (Negative). Urine Ketones Negative ( Negative). Urine Occult Blood Trace-lysed H (Negative). Urine Nitrite Negative (Negative). Urine Bilirubin Negative (Negative). Urine Urobilinogen 1.0 (0.2-1.0). Ur Leukocyte Esterase 1+ H (Negative). Urine RBC 0-5 (0-5) / hpf. Urine WBC 0-5 (0-5) /hpf. Ur Epithelial Cells 0-5 (0-5) /hpf. Amorphous Sediment Many H (NOT SEEN) /hpf. Urine Bacteria Few (FEW) /hpf. Urine Mucus Not seen (FEW) /hpf. Urine Opiates Screen Negative (NEGATIVE). Ur Buprenorphine Scrn Negative (NEGATIVE). Ur Oxycodone Screen Negative ( NEGATIVE). Urine Methadone Screen Negative (NEGATIVE). Ur Propoxyphene Screen Negative (NEGATIVE). Ur Barbiturates Screen Negative (NEGATIVE). Ur Tricyclics Screen Negative (NEGATIVE). Ur Phencyclidine Scrn Negative (NEGATIVE ). Ur Amphetamine Screen Negative (NEGATIVE). U Methamphetamines Scrn Negative (NEGATIVE). U Benzodiazepines Scrn Negative (NEGATIVE). U Cocaine Metab Screen Negative (NEGATIVE). U Marijuana (THC) Screen Negative (NEGATIVE) . HIV-1 Ab Rapid Screen (NEGATIVE). Blood Type. Gel Antibody Screen. Range/Units. 04:4004:40. WBC (3.98-10.04) K/mm3. RBC (3.98-5.22) M/mm3. Hgb (11.2-15.7) gm/L. Hct (34.1-44.9) %. MCV (79.4-94.8) fl. MCH ( 25.6-32.2) pg. MCHC (32.2-35.5) g/dl. RDW Std Deviation (36.4-46.3) fL. Plt Count (182-369) K/mm3. MPV (9.4-12.3) fl. Neut % (Auto) (34.0-71.1) %. Lymph % (Auto) (19.3-51.7) %. Payne % (Auto) (4.7-12.5) %. Eos % (Auto) ( 0.7-5.8). Baso % (Auto) (0.1-1.2) %. Neut # (Auto) (1.56-6.13) K/mm3. Lymph # (Auto) (1.18-3.74) K/mm3. Payne # (Auto) (0.24-0.36) K/mm3. Eos # ( Auto) (0.04-0.36) K/mm3. Baso # (Auto) (0.01-0.08) K/mm3. Urine Color ( Yellow). Urine Appearance (Clear). Urine pH (5.0-8.0). Ur Specific [place] ( 1.005-1.030). Urine Protein (Negative). Urine Glucose (UA) (Negative). Urine Ketones (Negative). Urine Occult Blood (Negative). Urine Nitrite (Negative). Urine Bilirubin (Negative). Urine Urobilinogen (0.2-1.0). Ur Leukocyte Esterase (Negative). Urine RBC (0-5) /hpf. Urine WBC (0-5) /hpf. Ur Epithelial Cells (0-5) /hpf. Amorphous Sediment (NOT SEEN) /hpf. Urine Bacteria (FEW) /hpf. Urine Mucus (FEW) /hpf. Urine Opiates Screen (NEGATIVE) . Ur Buprenorphine Scrn (NEGATIVE). Ur Oxycodone Screen (NEGATIVE). Urine Methadone Screen (NEGATIVE). Ur Propoxyphene Screen (NEGATIVE). Ur Barbiturates Screen (NEGATIVE). Ur Tricyclics Screen (NEGATIVE). Ur Phencyclidine Scrn (NEGATIVE). Ur Amphetamine Screen (NEGATIVE). U Methamphetamines Scrn (NEGATIVE). U Benzodiazepines Scrn (NEGATIVE). U Cocaine Metab Screen (NEGATIVE). U Marijuana (THC) Screen (NEGATIVE). HIV-1 Ab Rapid Screen Negative (NEGATIVE). Blood Type A POSITIVE. Gel Antibody Screen Negative. Med Orders - Current: Current Medications. Ephedrine Sulfate (Ephedrine Sulfate) 5 mg IVPUSH ASDIRECTED PRN. PRN Reason: Hypotension. Fentanyl (Sublimaze) 100 mcg EPIDUR Q3H PRN. PRN Reason: Pain. Fentanyl/Bupivacaine HCl (Fentanyl/Bupivacaine/Ns 2 Mcg-0.125% 100 Ml) 100 ml EPIDUR ASDIRECTED DARIA. Lactated Ringer's (Ringers, Lactated) 1,000 mls @ 100 mls/hr IV ASDIRECTED DARIA. Last Admin: 10/01/17 06:47 Dose: 100 mls/hr. Oxytocin/Lactated Ringer's (Pitocin In Lr 10 Units/1,000 Ml) 10 unit in 1,000 mls @ 500 mls/hr IV .CONTINUOUS DARIA. Phenylephrine HCl 1 mg/ Sodium (Chloride) 10.1 mls @ 1 mls/sec IV TITRATE DARIA; Protocol. Nalbuphine HCl (Nubain) 10 mg IVPUSH Q2H PRN. PRN Reason: pain. Ondansetron HCl (Zofran) 4 mg IVPUSH ONETIME PRN. PRN Reason: Nausea/Vomiting. Sodium Chloride (Saline Flush) 10 ml FLUSH ASDIRECTED PRN. PRN Reason: Keep Vein Open. Discontinued Medications. Diphtheria/Tetanus/Acell Pertussis (Adacel) 0.5 ml IM .ONCE ONE. Stop: 10/01/17 06:43. Misoprostol (Cytotec) Confirm Administered Dose 400 mcg .ROUTE .STK-MED ONE. Stop: 10/01/17 08:07. - Problem List & Annotations. (1) No care in current in third trimester. SNOMED Code(s): 530734039, 458081435. Code(s): O09.33 - SUPRVSN OF PREG W INSUFFICIENT ANTENAT CARE, THIRD TRIMESTER Status: Acute Current Visit: Yes. (2) Meconium in amniotic fluid affecting management of mother. SNOMED Code(s): 20650405. Code( s): O36.8990 - MATERNAL CARE FOR OTH PROBLEMS, UNSP TRIMESTER, UNSP Status: Acute Current Visit: Yes. Qualifiers: Fetus number: single or unspecified fetus Trimester: third trimester Qualified Code(s): O36.8930 - Maternal care for other specified problems, third trimester, not applicable or unspecified. (3) 40 weeks gestation of . SNOMED Code(s) : 71522821. Code(s): Z3A.40 - 40 WEEKS GESTATION OF Status: Acute Current Visit: Yes. - Problem List Review. Problem List Initiated/Reviewed/ Updated: No. - My Orders. Last 24 Hours: My Active Orders. 10/01/17 03:35. DRUG SCREEN, URINE [URCHEM] Stat. UA W/MICROSCOPIC [URIN] Stat. 10/01/17 03: 38. Resuscitation Status Routine. 10/01/17 03:39. Patient Status [ADT] Routine. Vital Signs [RC] PER UNIT ROUTINE. 10/01/17 04:20. OB Ltd 1 or More Fetus [US] Urgent. OB Panel [OM.PC] Stat. 10/01/17 04:30. GROUP B STREP BY PCR [MOLEC] Stat. 10/01/17 04:40. HEPATITIS B SURFACE AG [CHEM] Stat. PATIENT RETYPE [BBK] Urgent. RAPID PLASMA REAGIN,RPR [CHEM] Stat. RUBELLA ANTIBODY IGG [CHEM] Stat. TYPE AND SCREEN [BBK] Urgent. 10/01/17 06:12. Nalbuphine [Nubain] 10 mg IVPUSH Q2H PRN. Sodium Chloride 0.9% [Saline Flush ] 10 ml FLUSH ASDIRECTED PRN. 10/01/17 06:15. Lactated Ringers [Ringers, Lactated] 1,000 ml IV ASDIRECTED. Oxytocin/Lactated Ringers [Pitocin in LR 10 Units/1,000 ML] 10 unit in 1,000 ml IV .CONTINUOUS. 10/01/17 06:16. Activity as Tolerated [RC] PFP. Communication Order [RC] ASDIRECTED. Notify Provider [ RC] PFP. Notify Provider [RC] PRN. Peripheral IV Care [RC] . DIRECTED. Electronic Heart Tones Ext w TOCO [WOMSER] Routine. Electronic Heart Tones Internal [WOMSER] Per Unit Routine. Peripheral IV Insertion Adult [ OM.PC] Routine. 10/01/17 06:42. Vaccines to be Administered [RC] PER UNIT ROUTINE. 10/01/17 06:45. Patient Status [ADT] Routine. 10/01/17 Breakfast. Regular Diet [DIET] Diagnosis: Stroke: No - Discharge Data Discharge Date: 10/03/17 Discharge Disposition: Home, Self-Care 01 Condition: Good - Discharge Diagnosis/Problem(s) (1) No care in current in third trimester SNOMED Code(s): 568063506, 273077972 ICD Code: O09.33 - SUPRVSN OF PREG W INSUFFICIENT ANTENAT CARE, THIRD TRIMESTER Status: Acute Current Visit: Yes (2) Meconium in amniotic fluid affecting management of mother SNOMED Code(s): 07089163 ICD Code: O36.8990 - MATERNAL CARE FOR OTH PROBLEMS, UNSP TRIMESTER, UNSP Status: Acute Current Visit: Yes Qualifiers: Fetus number: single or unspecified fetus Trimester: third trimester Qualified Code(s): O36.8930 - Maternal care for other specified problems, third trimester, not applicable or unspecified (3) 40 weeks gestation of SNOMED Code(s): 42151607 ICD Code: Z3A.40 - 40 WEEKS GESTATION OF Status: Acute Current Visit: Yes - Patient Summary/Data Complications: None Consults: None Hospital Course: Uneventful - Patient Instructions Diet: Usual Diet as Tolerated Driving: May Drive Today Showering/Bathing: May Shower Notify Provider of: Fever, Increased Pain, Swelling and Redness, Drainage, Nausea and/or Vomiting - Discharge Plan *PRESCRIPTION DRUG MONITORING PROGRAM REVIEWED*: Not Applicable *COPY OF PRESCRIPTION DRUG MONITORING REPORT IN PATIENT XIANG: Not Applicable Home Medications: Home Meds Acetaminophen [Tylenol] 650 mg PO Q4H PRN tablet 10/03/17 [Rx] Benzocaine/Menthol [Dermoplast Pain Relief Hostetter] 1 spray TOP ASDIRECTED PRN canister 10/03/17 [Rx] Docusate Sodium [Colace] 100 mg PO BID PRN cap 10/03/17 [Rx] Ibuprofen [Motrin] 600 mg PO Q4H PRN tablet 10/03/17 [Rx] Lanolin [Lansinoh HPA] 1 applic TOP ASDIRECTED PRN tube 10/03/17 [Rx] Witch Caterina [Tucks] 1 pad TOP ASDIRECTED PRN pad 10/03/17 [Rx] Referrals: James Obando MD [Primary Care Provider] - (Make appointment to see me 12/23) - Discharge Summary/Plan Comment DC Time >30 min.: No - Patient Data Vitals - Most Recent: Last Vital Signs Temp 98.2 F 10/03/17 02:14 Pulse 73 10/03/17 02:14 Resp 14 10/03/17 02:14 BP 107/70 10/03/17 02:14 Pulse Ox 100 08/29/18 02:14 Weight - Most Recent: 174 lb 14.4 oz I&O - Last 24 hours: Intake & Output 10/02/17 10/03/17 10/03/17 22:59 06:59 14:59 Intake Total 120 Balance 120 Lab Results - Last 24 hrs: Laboratory Results - last 24 hr 10/01/17 Range/Units 04:40 Blood Type A POSITIVE Gel Antibody Screen Negative Med Orders - Current: Current Medications Acetaminophen (Tylenol) 650 mg PO Q4H PRN PRN Reason: mild pain or fever Benzocaine/Menthol (Dermoplast Pain Relief Hostetter) 0 gm TOP ASDIRECTED PRN PRN Reason: Perineal Comfort Measure Docusate Sodium (Colace) 100 mg PO BID PRN PRN Reason: Constipation Emollient Ointment (Lansinoh Hpa) 0 gm TOP ASDIRECTED PRN PRN Reason: Sore Nipples Ibuprofen (Motrin) 600 mg PO Q4H PRN PRN Reason: Mild pain or fever Last Admin: 10/02/17 22:34 Dose: 600 mg Witch Caterina (Tucks) 1 pad TOP ASDIRECTED PRN PRN Reason: Hemorrhoid pain Discontinued Medications Diphtheria/Tetanus/Acell Pertussis (Adacel) 0.5 ml IM .ONCE ONE Stop: 10/01/17 06:43 Last Admin: 10/01/17 12:54 Dose: 0.5 ml Ephedrine Sulfate (Ephedrine Sulfate) 5 mg IVPUSH ASDIRECTED PRN PRN Reason: Hypotension Fentanyl (Sublimaze) 100 mcg EPIDUR Q3H PRN PRN Reason: Pain Fentanyl/Bupivacaine HCl (Fentanyl/Bupivacaine/Ns 2 Mcg-0.125% 100 Ml) 100 ml EPIDUR ASDIRECTED DARIA Lactated Ringer's (Ringers, Lactated) 1,000 mls @ 100 mls/hr IV ASDIRECTED DARIA Last Admin: 10/01/17 06:47 Dose: 100 mls/hr Oxytocin/Lactated Ringer's (Pitocin In Lr 10 Units/1,000 Ml) 10 unit in 1,000 mls @ 500 mls/hr IV .CONTINUOUS DARIA Phenylephrine HCl 1 mg/ Sodium (Chloride) 10.1 mls @ 1 mls/sec IV TITRATE DARIA; Protocol Misoprostol (Cytotec) Confirm Administered Dose 400 mcg .ROUTE .STK-MED ONE Stop: 10/01/17 08:07 Misoprostol (Cytotec) 400 mcg PO ONETIME ONE Stop: 10/01/17 09:46 Last Admin: 10/01/17 15:24 Dose: 400 mcg Nalbuphine HCl (Nubain) 10 mg IVPUSH Q2H PRN PRN Reason: pain Ondansetron HCl (Zofran) 4 mg IVPUSH ONETIME PRN PRN Reason: Nausea/Vomiting Sodium Chloride (Saline Flush) 10 ml FLUSH ASDIRECTED PRN PRN Reason: Keep Vein Open
--- NOTE | 2017-10-04 10:09 | US ---
Limited obstetrical ultrasound: Multiple real-time images were obtained. Comparison: No prior study for current . Dates: Current ultrasound: AISHWARYA 10/10/17, gestational age 38 weeks 5 days presentation: Cephalic Placenta: Anterior with no findings of placenta previa Amniotic fluid: SARANYA 10.9 cm Measurements: BPD: 19.65 cm - 39 weeks 4 days Head circumference: 33.40 cm - 38 weeks 2 days Abdominal circumference: 34.68 cm - 38 weeks 5 days Femur length: 7.42 cm - 38 weeks 0 days Estimated weight: 3514 g (7 lbs. 12 oz.), estimated weight at the 62nd percentile for age by current ultrasound Heart rate: 147 bpm Cervical length: Not seen due to position Impression: 1. Single intrauterine fetus currently cephalic in presentation. Dates as noted above. 2. No complicating process seen by ultrasound at this time. Diagnostic code #1 I agree with preliminary report issued by [facility] ([facility] preliminary report dictated on 10/01/17, 7:10 AM Central Time)
== END 2017-10-03 13:47 | disposition home or self-care (01) | DRG 775 ==
LOC: JD.OB 02:49 → JD.OBCHECK 02:49 → JD.OB 06:45 → OBSVTOIN 08:00 → JD.OB 08:01
PROVIDERS: ADMIT Obstetrics & Gynecology; ATTEND Obstetrics & Gynecology
PROC: 10E0XZZ Delivery of Products of Conception, External Approach (ICD-10-PCS; principal; 2017-10-01)
PROC: 10907ZC Drainage of Amniotic Fluid, Therapeutic from Products of Conception, Via Natural or Artificial Opening (ICD-10-PCS; 2017-10-01)
PROC: 3E0234Z Introduction of Serum, Toxoid and Vaccine into Muscle, Percutaneous Approach (ICD-10-PCS; 2017-10-01)
DX: O77.0 Labor and delivery complicated by meconium in amniotic fluid (principal); Z3A.40 40 weeks gestation of pregnancy; Z37.0 Single live birth; Z23 Encounter for immunization
CPT/HCPCS: 36415; 59025; 59409; 76815; 76815-26; 80306; 81001; 85025; 86592; 86762; 86850; 86900; 86901; 87340; 87653; 90715; A9270-GY; G0433; J7120